=== PATIENT | female | born 1945 | race Caucasian/White ===

== ENCOUNTER 2017-07-01 06:16 | Emergency (ER) | payer MEDICARE ==
[~2017-07-01] VITALS: Ht 162.6 cm; Wt 70.3 kg
[~2017-07-01 06:16] MED LIST: HYDROCHLOROTH12.5 MG PO; LEVOTHYROXINE125 MCG PO; LEVOTHYROXINE25 MCG PO; TRIAMTERENE-HC1 EAC2 PO
[2017-07-01 07:06] LABS: BASOPHILS # (AUTO) 0.1 (0.0-0.1); BASOPHILS % 1.8 % (0.0-1.0); EOSINOPHILS # (AUTO) 0.2 (0.0-0.4); EOSINOPHILS % 3.5 % (0.0-6.0); HEMATOCRIT 45.3 % (34.2-44.1); HEMOGLOBIN 15.4 g/dL (12.0-16.0); LYMPHOCYTES # (AUTO) 2.4 (1.0-3.2); LYMPHOCYTES % 38.1 % (18.0-39.1); MONOCYTES # (AUTO) 0.5 (0.2-0.8); MONOCYTES % 8.6 % (4.4-11.3); NEUTROPHILS % 47.5 % (38.7-80.0); PLATELET COUNT 272 x10e3/uL (140-360); RED BLOOD COUNT 4.82 x10e6/uL (3.6-5.1); RED CELL DISTRIBUTION WIDTH 13.2 % (11.7-14.4)
[2017-07-01 07:14] LABS: CLARITY,URINE CLEAR (CLEAR); COLOR,URINE YELLOW (YELLOW)
[2017-07-01 07:15] LABS: BILIRUBIN,URINE NEGATIVE (NEGATIVE); KETONES,URINE NEGATIVE (NEGATIVE); LEUKOCYTE ESTERASE ,URINE NEGATIVE (NEGATIVE); NITRITE,URINE NEGATIVE (NEGATIVE); PROTEIN,URINE DIPSTICK NEGATIVE (NEGATIVE); URINE UROBILINOGEN 0.2 mg/dL (0.2 - 1)
[2017-07-01 07:29] LABS: BACTERIA,URINE FEW /HPF; EPITHELIAL CELLS,URINE MODERATE /LPF; RBC,URINE 0-5 /HPF (0-5); WBC,URINE (MAN) 0-5 /HPF (0-5)
[2017-07-01 07:36] LABS: ALANINE AMINOTRANSFERASE 15 IU/L (0-55); ALBUMIN/GLOBULIN RATIO 1.1 (0.8-2.0); ALKALINE PHOSPHATASE 99 IU/L (40-150); AMYLASE 74 U/L (25-125); ANION GAP 13.2 mmol/L (8-16); BLOOD UREA NITROGEN 14 mg/dL (7-26); BUN/CREATININE RATIO 16 (6-25); CALCIUM 9.1 mg/dL (8.4-10.2); CARBON DIOXIDE 29 mmol/L (22-29); CHLORIDE 100 mmol/L (98-107); CREATININE, SERUM 0.87 mg/dL (0.57-1.11); EST GLOMERULAR FILTRATION RATE > 60 ML/MIN (60-); GLUCOSE 99 mg/dL (74-118); LIPASE 26 U/L (8-78); POTASSIUM 3.2 mmol/L (3.5-5.1); SODIUM 139 mmol/L (136-145)
--- NOTE | 2017-07-01 09:00 | Diagnostic Imaging Report ---
EXAM: CT Abdomen and Pelvis WITHOUT contrast INDICATION: Right flank pain, evaluate for stones COMPARISON: None. TECHNIQUE: Abdomen and pelvis were scanned utilizing a multidetector helical scanner from the lung base to the pubic symphysis without administration of IV contrast. Absence of intravenous contrast decreases sensitivity for detection of focal lesions and vascular pathology. Coronal and sagittal reformations were obtained. Routine protocol was performed. IV CONTRAST: None. ORAL CONTRAST: Water RADIATION DOSE: Total DLP: 438.2 mGy*cm Estimated effective dose: (DLP x 0.015 x size factor) mSv COMPLICATIONS: None FINDINGS: LINES and TUBES: None. LOWER THORAX: Linear scarring in both lung bases. Subpleural reticulations of the lungs may represent very early pulmonary fibrosis. Moderate hiatal hernia, located to the right of the chest. HEPATOBILIARY: No focal hepatic lesions. No biliary ductal dilation. GALLBLADDER: No radio-opaque stones or sludge. No wall thickening. SPLEEN: No splenomegaly. PANCREAS: No focal masses or ductal dilatation. ADRENALS: No adrenal nodules KIDNEYS/URETERS: No hydronephrosis. 0.9 cm low-attenuation exophytic cyst in the inferior right kidney on series 3, image 66. No stones. GI TRACT: No abnormal distention, wall thickening, or evidence of bowel obstruction. Appendix is normal. PELVIC ORGANS/BLADDER: The urinary bladder is unremarkable. The uterus is either atrophic or surgically absent. LYMPH NODES: No lymphadenopathy. VESSELS: Unremarkable. PERITONEUM / RETROPERITONEUM: No free air or fluid. BONES: Focal trabeculation of L3 vertebral body likely due to hemangioma. Age-indeterminate mild to moderate compression wedging deformity of L1 vertebral body. Diffuse bone demineralization. SOFT TISSUES: Unremarkable. IMPRESSION: 1. No calcified nephrolithiasis. 2. Moderate hiatal hernia, located in the right side of the chest. Signed by: Dr. Evie Demarco M.D. on 07/01/2017 8:56 AM
[2017-07-01] MEDS ORDERED: MORPHINE SULFATE 2 MG/ML SYR IV STA (09:46)
[2017-07-01] MEDS ORDERED: ONDANSETRON HCL INJ 2 MG/ML VIAL IV STA (09:46)
[2017-07-01] MEDS ORDERED: POTASSIUM CHLORIDE 10 MEQ TABCR PO ONE (10:00)
== END 2017-07-01 10:01 | disposition home or self-care (01) ==
LOC: ER 06:16
DX: R10.31 Right lower quadrant pain (principal)
CPT/HCPCS: 36415; 74176; 80053; 81001; 82150; 83690; 85025; 99284; J2270; J2405

== ENCOUNTER 2020-04-03 10:16 | Emergency (ER) | payer MEDICARE ==
[~2020-04-03] VITALS: Ht 162.6 cm; Wt 70.3 kg
[2020-04-03] MEDS ORDERED: SODIUM CHLORIDE 0.9% 1000ML 1,000 ML IV STA (10:25)
[2020-04-03] MEDS ORDERED: PANTOPRAZOLE 40 MG 10ML VIAL IV NR (10:30)
[2020-04-03] MEDS ORDERED: ONDANSETRON HCL INJ 2MG/ML 2ML 2 MG/ML VIAL IV NR (10:30)
[2020-04-03 10:52] LABS: BASOPHILS % 0.2 % (0.0-1.0); HEMATOCRIT 41.2 % (34.2-44.1); HEMOGLOBIN 14.3 g/dL (12.0-16.0); LYMPHOCYTES # (AUTO) 0.9 (1.0-3.2); MEAN CORPUSCULAR HEMOGLOBIN 31.9 pg (28-32); MEAN CORPUSCULAR HGB CONC 34.7 g/dL (31-35); MONOCYTES # (AUTO) 0.3 (0.2-0.8); MONOCYTES % 7.5 % (4.4-11.3); NEUTROPHILS # (AUTO) 2.9 (2.1-6.9); NEUTROPHILS % 70.1 % (38.7-80.0); PLATELET COUNT 157 x10e3/uL (140-360); RED BLOOD COUNT 4.48 x10e6/uL (3.6-5.1); RED CELL DISTRIBUTION WIDTH 13.3 % (11.7-14.4)
[2020-04-03 10:55] LABS: CLARITY,URINE CLEAR (CLEAR); COLOR,URINE YELLOW (YELLOW); KETONES,URINE NEGATIVE (NEGATIVE); LEUKOCYTE ESTERASE ,URINE TRACE (NEGATIVE); NITRITE,URINE NEGATIVE (NEGATIVE); PROTEIN,URINE DIPSTICK NEGATIVE (NEGATIVE); URINE UROBILINOGEN 1 mg/dL (0.2 - 1)
[2020-04-03 10:58] LABS: RBC,URINE 0-5 /HPF (0-5); WBC,URINE (MAN) 0-5 /HPF (0-5)
[2020-04-03 10:59] LABS: BACTERIA,URINE FEW /HPF; EPITHELIAL CELLS,URINE FEW /LPF
[2020-04-03 12:57] LABS: INR 0.89; PARTIAL THROMBOPLASTIN TIME 29.7 seconds (23.8-35.5); PROTHROMBIN TIME 12.5 seconds (11.9-14.5)
[2020-04-03 12:59] LABS: ALANINE AMINOTRANSFERASE 19 IU/L (0-55); ALBUMIN 2.9 g/dL (3.5-5.0); ALKALINE PHOSPHATASE 69 IU/L (40-150); ANION GAP 13.2 mmol/L (8-16); BLOOD UREA NITROGEN 13 mg/dL (7-26); BUN/CREATININE RATIO 16 (6-25); CALCIUM 7.5 mg/dL (8.4-10.2); CARBON DIOXIDE 25 mmol/L (22-29); CHLORIDE 102 mmol/L (98-107); CREATINE KINASE 36 IU/L (29-168); CREATININE, SERUM 0.79 mg/dL (0.57-1.11); EST GLOMERULAR FILTRATION RATE > 60 ML/MIN (60-); GLUCOSE 90 mg/dL (74-118); MAGNESIUM 1.6 MG/DL (1.3-2.1); POTASSIUM 3.2 mmol/L (3.5-5.1); SODIUM 137 mmol/L (136-145)
[2020-04-03] MEDS ORDERED: ONDANSETRON ODT8 MG PO (13:25)
== END 2020-04-03 14:06 | disposition home or self-care (01) ==
LOC: ER 10:25
DX: U07.1 COVID-19 (principal); R50.9 Fever, unspecified; R05 Cough; R19.7 Diarrhea, unspecified; I10 Essential (primary) hypertension; E03.9 Hypothyroidism, unspecified
CPT/HCPCS: 36415; 71045; 80053; 81001; 82550; 82553; 83735; 84484; 85025; 85610; 85730; 87086; 99284; C9113; J2405; J7030; U0002

== ENCOUNTER 2022-02-11 18:21 | Emergency (ER) | payer MEDICARE ==
[~2022-02-11] VITALS: Ht 161.3 cm; Wt 73.9 kg
[~2022-02-11 18:21] MED LIST changes: +ONDANSETRON ODT8 MG PO
[2022-02-11] MEDS ORDERED: IOPAMIDOL 370 MG/ML 100 ML INFUS..BTL INJ ONE (19:50)
[2022-02-11] MEDS ORDERED: CEPHALEXIN500 MG PO (20:51)
[2022-02-11 21:10] VITALS: BP 203/97
== END 2022-02-11 21:10 | disposition home or self-care (01) ==
LOC: FSED 18:36
DX: R10.32 Left lower quadrant pain (principal); N39.0 Urinary tract infection, site not specified; I10 Essential (primary) hypertension; E03.9 Hypothyroidism, unspecified; E78.00 Pure hypercholesterolemia, unspecified
CPT/HCPCS: 74177; 80048; 80076; 81003; 85025; 99284; Q9967

== ENCOUNTER 2023-11-11 08:03 | Emergency (ER) | payer MEDICARE ==
[~2023-11-11] VITALS: Ht 162.6 cm; Wt 68.2 kg
[~2023-11-11 08:03] MED LIST changes: +CEPHALEXIN500 MG PO
[2023-11-11] MEDS ORDERED: LOSARTAN-HCTZ1 EAC1 (08:24)
[2023-11-11] MEDS ORDERED: ATENOLOL50 MG PO (08:24)
[2023-11-11] MEDS ORDERED: ATORVASTATIN CA20 MG PO (08:24)
[2023-11-11] MEDS ORDERED: LIDOCAINE HCL 1% LOCAL INJ 20 ML VIAL ONE (09:03)
[2023-11-11] MEDS: LIDOCAINE HCL 1% LOCAL INJ 20 ML VIAL INJ ONE (09:04)
[2023-11-11] MEDS: HYDROCODONE/APAP 5MG-325MG TAB PO ONE (09:05)
[2023-11-11] MEDS ORDERED: BACTRIM DS TAB1 EACH PO (10:00)
[2023-11-11 10:20] VITALS: PULSE 62; RESP 14; TEMP 98.3; O2SAT 98
== END 2023-11-11 10:27 | disposition home or self-care (01) ==
LOC: FSED 08:12
DX: L02.214 Cutaneous abscess of groin (principal); I10 Essential (primary) hypertension; E78.5 Hyperlipidemia, unspecified; E03.9 Hypothyroidism, unspecified
CPT/HCPCS: 10061; 81003; 96372; 99284; J2001; 56405